=== PATIENT | female | born 1995 | race Caucasian/White ===

== ENCOUNTER → 2020-07-07 | Outpatient (CLI) | LOC: LABNPT 15:27 | PROVIDERS: ATTEND Family Medicine | DX: Z01.419 Encounter for gynecological examination (general) (routine) without abnormal findings (principal) | CPT/HCPCS: 87210 ==

== ENCOUNTER → 2020-12-26 | Outpatient (CLI) | payer BC, MEDICAID ==
[2020-12-26 11:14] LABS: HEMATOCRIT 39 % (35-52); HEMOGLOBIN 13.3 g/dL (11.5-16.0); MEAN CORPUSCULAR HEMOGLOBIN 30 pg (25-34); MEAN CORPUSCULAR HGB CONC 35 g/dL (32-36); MEAN CORPUSCULAR VOLUME 87 fL (80-99); MEAN PLATELET VOLUME 11.2 fL (9.0-12.2); PLATELET COUNT 241 10^3/uL (130-400); WHITE BLOOD COUNT 8.9 10^3/uL (4.3-11.0)
== END ==
LOC: LAB FS 10:02
PROVIDERS: ATTEND Family Medicine
DX: Z34.81 Encounter for supervision of other normal pregnancy, first trimester (principal); Z3A.00 Weeks of gestation of pregnancy not specified
CPT/HCPCS: 36415; 85027; 86703; 86762; 86780; 86850; 86900; 86901; 87088; 87340

== ENCOUNTER → 2021-03-20 | Outpatient (CLI) | payer BC, MEDICAID | LOC: LABNPT 14:55 | PROVIDERS: ATTEND Family Medicine | DX: N89.8 Other specified noninflammatory disorders of vagina (principal) | CPT/HCPCS: 87210 ==

== ENCOUNTER → 2021-04-25 | Outpatient (CLI) | payer BC, MEDICAID ==
[2021-04-25 09:22] LABS: HEMATOCRIT 36 % (35-52); HEMOGLOBIN 12.4 g/dL (11.5-16.0); MEAN CORPUSCULAR HEMOGLOBIN 30 pg (25-34); MEAN CORPUSCULAR HGB CONC 34 g/dL (32-36); MEAN CORPUSCULAR VOLUME 87 fL (80-99); WHITE BLOOD COUNT 9.9 10^3/uL (4.3-11.0)
[2021-04-25 09:23] LABS: MEAN PLATELET VOLUME 10.7 fL (9.0-12.2); PLATELET COUNT 223 10^3/uL (130-400)
== END ==
LOC: LAB FS 08:47
PROVIDERS: ATTEND Family Medicine
DX: Z34.81 Encounter for supervision of other normal pregnancy, first trimester (principal); Z3A.00 Weeks of gestation of pregnancy not specified
CPT/HCPCS: 36415; 82951; 82952; 85027; 86780

== ENCOUNTER → 2022-06-06 | Outpatient (CLI) | payer MEDICAID | LOC: LABNPT 12:15 | PROVIDERS: ATTEND Family Medicine | DX: Z11.3 Encounter for screening for infections with a predominantly sexual mode of transmission (principal) | CPT/HCPCS: 87210 ==